=== PATIENT | male | born 1965 | race Caucasian/White ===

== ENCOUNTER 2017-02-18 07:35 | Day surgery (SDC) | payer MEDICAID ==
[~2017-02-18] VITALS: Ht 175.3 cm; Wt 83.9 kg
[~2017-02-18 07:35] MED LIST: LEVO25TA7 PO; LISI10TA5 PO; METF500T4 PO
[2017-02-18] MEDS ORDERED: BALANCED SALT IRRIG SOLN COMB1 500ML OP ONE (07:45)
[2017-02-18] MEDS ORDERED: PHENYLEPHRINE HCL 10% OPHTH DROPS 5ML RIGHTEYE SCH (07:55)
[2017-02-18] MEDS ORDERED: CYCLOPENTOLATE HCL 1% OPHTH DROPS 2ML RIGHTEYE SCH (07:55)
[2017-02-18] MEDS ORDERED: TROPICAMIDE 1% OPHTH DROPS 15ML RIGHTEYE SCH (07:55)
[2017-02-18] MEDS ORDERED: HYALURONATE SODIUM 14 MG/ML 0.85ML SYRINGE IO ONE (08:22)
[2017-02-18] MEDS ORDERED: SODIUM CHLORIDE 0.9% 1,000 ML IV SCH (09:30)
[2017-02-18] MEDS ORDERED: FENTANYL CITRATE/PF 50MCG/ML 2ML VIAL ONE (09:58)
[2017-02-18] MEDS ORDERED: DIPHENHYDRAMINE 50MG/ML VIAL ONE (09:59)
[2017-02-18] MEDS ORDERED: MIDAZOLAM HCL 2 MG/2 ML VIAL ONE (09:59)
[2017-02-18] MEDS ORDERED: PROPOFOL 200MG/20ML VIAL IV ONE (10:17)
[2017-02-18] MEDS ORDERED: MORPHINE SULFATE 2 MG/ML CPJ (NOT FOR IM USE) IV PRN (10:30)
[2017-02-18] MEDS ORDERED: LIDOCAINE HCL 2%/EPINEPHRINE 1:100,000 20 ML VIAL INFIL ONE (14:53)
[2017-02-18] MEDS ORDERED: PREDNISOLONE ACETATE 1% OPHTH DROPS 1ML ONE (14:53)
[2017-02-18] MEDS ORDERED: CIPROFLOXACIN 0.3% OPHTH SOLN 2.5ML ONE (14:53)
[2017-02-18] MEDS ORDERED: BUPIVACAINE HCL/PF 0.75% (7.5MG/ML) 10ML ONE (14:53)
[2017-02-18] MEDS ORDERED: NEO/POLYMYX B SULF/DEXAMETH OPHTH OINT 3.5GM ONE (14:53)
[2017-02-18] MEDS ORDERED: TETRACAINE 0.5% OPHTH DROPS 4ML ONE (14:53)
[2017-02-18] MEDS ORDERED: ACETYLCHOLINE CHLORIDE INTRAOCULAR SOLUTION 1:100 ELECTROLYTE DILUENT IO ONE (14:53)
[2017-02-18] MEDS ORDERED: LIDOCAINE HCL/PF 2% 20 MG/ML 10ML VIAL ONE (14:53)
[2017-02-18] MEDS ORDERED: BALANCED SALT IRRIG SOLN 15ML ONE (14:53)
== END 2017-02-18 12:45 | disposition home or self-care (01) ==
LOC: OR 07:35
PROVIDERS: ATTEND Ophthalmology
DX: H25.89 Other age-related cataract (principal); E11.36 Type 2 diabetes mellitus with diabetic cataract; I10 Essential (primary) hypertension; E03.8 Other specified hypothyroidism; F17.200 Nicotine dependence, unspecified, uncomplicated; Z98.890 Other specified postprocedural states
CPT/HCPCS: 66984; 82962; J1200; J2250; J3010; J3490; J7030; V2632; J2704

== ENCOUNTER 2017-03-04 08:46 | Day surgery (SDC) | payer MEDICAID ==
[~2017-03-04] VITALS: Ht 177.8 cm; Wt 83.9 kg
[~2017-03-04 08:46] MED LIST changes: +BALANCED SALT IRRIG SOLN COMB1 500ML OP NR
[2017-03-04] MEDS ORDERED: CYCLOPENTOLATE HCL 1% OPHTH DROPS 2ML LEFTEYE ONE (09:45)
[2017-03-04] MEDS ORDERED: TROPICAMIDE 1% OPHTH DROPS 15ML LEFTEYE ONE (09:45)
[2017-03-04] MEDS ORDERED: PHENYLEPHRINE HCL 10% OPHTH DROPS 5ML LEFTEYE ONE (09:45)
[2017-03-04] MEDS ORDERED: SODIUM CHLORIDE 0.9% 1,000 ML IV SCH (10:00)
[2017-03-04] MEDS ORDERED: FENTANYL CITRATE/PF 50MCG/ML 2ML VIAL ONE (11:29)
[2017-03-04] MEDS ORDERED: MIDAZOLAM HCL 2 MG/2 ML VIAL ONE (11:29)
[2017-03-04] MEDS ORDERED: HYALURONATE SODIUM 14 MG/ML 0.85ML SYRINGE IO ONE (12:10)
[2017-03-04] MEDS ORDERED: MEPERIDINE HCL/PF 25MG/ML CPJ IV PRN (12:30)
[2017-03-04] MEDS ORDERED: LABETALOL 5MG/ML SYR 20 MG/4 ML SYRINGE IV PRN (12:30)
[2017-03-04] MEDS ORDERED: HYDROMORPHONE HCL/PF 2MG/ML CPJ IV PRN (12:30)
[2017-03-04] MEDS ORDERED: ONDANSETRON HCL 4MG/2ML VIAL IV PRN (12:30)
[2017-03-04] MEDS ORDERED: CYCLOPENTOLATE HCL 1% OPHTH DROPS 2ML ONE (14:22)
[2017-03-04] MEDS ORDERED: CIPROFLOXACIN 0.3% OPHTH SOLN 2.5ML ONE (14:22)
[2017-03-04] MEDS ORDERED: BALANCED SALT IRRIG SOLN 15ML ONE (14:22)
[2017-03-04] MEDS ORDERED: LIDOCAINE HCL 2%/EPINEPHRINE 1:100,000 20 ML VIAL INFIL ONE (14:22)
[2017-03-04] MEDS ORDERED: TROPICAMIDE 1% OPHTH DROPS 15ML ONE (14:22)
[2017-03-04] MEDS ORDERED: NEO/POLYMYX B SULF/DEXAMETH OPHTH OINT 3.5GM ONE (14:22)
[2017-03-04] MEDS ORDERED: PHENYLEPHRINE HCL 10% OPHTH DROPS 5ML ONE (14:22)
[2017-03-04] MEDS ORDERED: TETRACAINE 0.5% OPHTH DROPS 4ML ONE (14:22)
[2017-03-04] MEDS ORDERED: BUPIVACAINE HCL/PF 0.75% (7.5MG/ML) 10ML ONE (14:22)
== END 2017-03-04 14:00 | disposition home or self-care (01) ==
LOC: OR 08:46
PROVIDERS: ATTEND Ophthalmology
DX: H25.89 Other age-related cataract (principal); F17.200 Nicotine dependence, unspecified, uncomplicated; I10 Essential (primary) hypertension; E11.9 Type 2 diabetes mellitus without complications; E03.8 Other specified hypothyroidism; Z98.890 Other specified postprocedural states; Z79.899 Other long term (current) drug therapy
CPT/HCPCS: 66984; 82962; J2250; J2405; J3010; J3490; J7030; V2632